=== PATIENT | male | born 1955 | race Caucasian/White ===

== ENCOUNTER 2017-05-06 10:07 | Emergency (ER) | payer MEDICARE, MEDICAID ==
--- NOTE | 2017-05-06 11:27 | ED ---
Lower Extremity - HPI Summary HPI Summary: 61 male presents to ED with complaints of a blood blister to right great toe that he sustained yesterday when hitting it on a bathtub. Patient states he does not have any pain. Called his PCP to inform them due to recent stent placement in right leg due to poor circulation to lower extremity. Surgery was 04/20. Has not had any complications since. Denies any swelling, pain or erythema. However was told to come to ED to check stent patency, without complaints other than blood blister after a stubbed toe. Blister had not increased in size, no new symptoms. FROM of toe without pain. Is taking plavix due to recent surgery. Able to bear weight and walk without difficulty. - History of Current Complaint Chief Complaint: EDExtremityLower Stated Complaint: BLOOD BLISTER ON RIGHT TOE Time Seen by Provider: 05/06/17 10:54 Hx Obtained From: Patient Mechanism Of Injury: Direct Blow Onset of Pain: Immediate, Post Accident Onset/Duration: Resolved Severity Initially: Moderate Severity Currently: None Pain Intensity: 0 Pain Scale Used: 0-10 Numeric Associated Signs And Symptoms: Positive: Bruising - blood blister to top of right great toe Aggravating Factor(s): Nothing Able to Bear Weight: Yes Feet (Multiple View): 1 - blood blister noted - Allergies/Home Medications Allergies/Adverse Reactions: Allergies Allergy/AdvReac Type Severity Reaction Status Date / Time Bee Venom Allergy Anaphylatic Verified 06/11/13 08:58 Shock TAPE Allergy Rash Uncoded 05/06/17 10:31 PMH/Surg Hx/FS Hx/Imm Hx Endocrine/Hematology History: Reports: Hx Diabetes - TYPE 2 Cardiovascular History: Reports: Hx Cardiomegaly, Hx Coronary Artery Disease - CHOLESTEROL CONTROL WITH MEDICATIONS, Hx Hypertension - CONTROL WITH MEDS, Other Cardiovascular Problems/Disorders Sensory History: Reports: Hx Contacts or Glasses - GLASSES Denies: Hx Hearing Aid Opthamlomology History: Reports: Hx Contacts or Glasses - GLASSES - Surgical History Surgery Procedure, Year, and Place: EYE MUSCLE SURGERY A CHILD, [facility]. 2010 UPPER PORTION OF UPPER JAW FOR CARROT CYST EXCISION, OFFICE Hx Anesthesia Reactions: No - Immunization History Immunizations Up to Date: Yes Infectious Disease History: Denies: Traveled Outside the [place] in Last 30 Days - Family History Known Family History: Positive: None - Social History Alcohol Use: None Substance Use Type: Reports: None Smoking Status (MU): Never Smoked Tobacco Review of Systems Constitutional: Negative Cardiovascular: Negative Respiratory: Negative Musculoskeletal: Negative Positive: Bruising - blood blister right great toe All Other Systems Reviewed And Are Negative: Yes Physical Exam Triage Information Reviewed: Yes Vital Signs On Initial Exam: Initial Vitals Temp Pulse Resp BP Pulse Ox 98.6 F 60 16 163/69 100 05/06/17 10:31 05/06/17 10:31 05/06/17 10:31 05/06/17 10:31 05/06/17 10:31 160/72 at d/c patient is medicated for HTN, encouraged follow up for recheck Vital Signs Reviewed: Yes Appearance: Positive: Well-Appearing, No Pain Distress, Well-Nourished Skin: Positive: Warm, Skin Color Reflects Adequate Perfusion, Dry, Purpura - blood blister on top of right great toe, painless, about size of nickel. no other signs of trauma, swelling, ecchymosis or deformity. FROM without pain of toe, rest of LE normal, scar to medial calf from recent surgery.. Negative: Cold, Cyanosis @, Pale, Erythema @ Head/Face: Positive: Normal Head/Face Inspection Neck: Positive: Supple, Nontender Respiratory/Lung Sounds: Positive: Clear to Auscultation, Breath Sounds Present. Negative: Rales, Rhonchi, Wheezes Cardiovascular: Positive: Normal, RRR, Pulses are Symmetrical in both Upper and Lower Extremities - 1+ right and left pedal pulse, slightly diminshed however patient states this is a chronic finding and due to vascular disease. Negative : Murmur, Rub Musculoskeletal: Positive: Normal, Strength/ROM Intact, Other - blood blister top of right great toe size of nickel as described above, no other signs of trauma, no pain on palpation, no edema, ecchymosis, crepitus or lack of ROM. normal exam otherwise. Negative: Limited @, Interruption @, Abnormal @, Pain @ , Edema Left Neurological: Positive: Normal, Sensory/Motor Intact, Alert, Oriented to Person Place, Time, CN Intact II-III, NV Bundle Intact Distally - grossly, Normal Gait - [place] Coma Scale Coma Scale Total: 15 Diagnostics - Vital Signs Vital Signs Temp Pulse Resp BP Pulse Ox 05/06/17 10:31 98.6 F 60 16 163/69 100 - Laboratory Lab Statement: Any lab studies that have been ordered have been reviewed, and results considered in the medical decision making process. - Ultrasound No standard instances Ultrasound Interpretation: No Acute Changes - 1. Patent RIGHT lower extremity common femoral to popliteal bypass arterial graft. 2. 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 Ultrasound Interpretation Completed By: Radiologist - and myself Lower Extremity Course/Dx - Course Course Of Treatment: US was obtained as asked by PCP and was normal showing patent stent. no concern for any other etiology at this time. blood blister on toe was not touched and told it will likely go away on its own, if it does not to have it re-evaluated. Did not open due to having increased risk of infection and pain. Patient refused xray due to not having any pain with motion and no signs of trauma other than blood blister. Able to bear weight and walk without difficulty. Follow up with PCP. No other concerns at this time. - Diagnoses Differential Diagnosis/HQI/PQRI: Positive: Fracture (Closed), Other - blood blister Provider Diagnoses: Blood blister Discharge - Discharge Plan Condition: Stable Disposition: HOME Patient Education Materials: Purpura (ED) Referrals: Heron Bryant MD [Primary Care Provider] - Additional Instructions: Refrain from popping blister as this will go away on its own and to refrain from infection/increased pain. Any new or worsening symptoms, pain etc, or not improving over the next couple of weeks please seek medical attention. You may keep dressed incase it does pop on its own. Follow up with PCP.
--- NOTE | 2017-05-06 12:30 | RAD ---
Indication: RIGHT great toe blood blister. Assess for arterial insufficiency. Comparison: No relevant prior exams available on the [facility] [place] for comparison. Technique: Arterial ultrasound of the RIGHT lower extremity femoral-popliteal bypass graft. Report: Peak systolic velocity at the RIGHT common femoral artery measures 147 cm/s. Triphasic waveform with spectral broadening suggests mild aortoiliac inflow disease. Peak systolic velocity at the proximal anastomosis, proximal segment, mid segment, distal segment, and distal anastomosis of the femoral popliteal bypass graft measures 120, 49, 56, 54, image 54 cm/s respectively. Peak systolic velocity at the popliteal artery measures 93 cm/s. IMPRESSION: 1. Patent RIGHT lower extremity common femoral to popliteal bypass arterial graft. 2. 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
[2017-05-06 12:50] VITALS: BP 160/72
== END 2017-05-06 12:49 | disposition home or self-care (01) ==
LOC: ED 10:07
DX: S90.421A Blister (nonthermal), right great toe, initial encounter (principal); I10 Essential (primary) hypertension; E11.9 Type 2 diabetes mellitus without complications; I25.10 Atherosclerotic heart disease of native coronary artery without angina pectoris; E78.00 Pure hypercholesterolemia, unspecified; W22.8XXA Striking against or struck by other objects, initial encounter; Y92.9 Unspecified place or not applicable
CPT/HCPCS: 99282

== ENCOUNTER 2017-05-15 12:41 | Emergency (ER) | payer MEDICARE, MEDICAID ==
[2017-05-15 14:10] LABS: Hematocrit 27 % (42-52); Hemoglobin 8.9 g/dl (14.0-18.0); Mean Corpuscular HGB Conc 33 g/dl (31-36); Mean Corpuscular Hemoglobin 31 pg (27-31); Mean Corpuscular Volume 92 fL (80-94); Mean Platelet Volume 8 um3 (7.4-10.4); Red Blood Count 2.92 10^6/ul (4.0-5.4); Red Cell Distribution Width 16 % (10.5-15)
[2017-05-15 14:26] LABS: Albumin 3.4 g/dL (3.2-5.2); BUN/Creatinine Ratio 15.8 (8-20); C Reactive Protein 1.6 mg/L (< 5.00); Calcium 8.9 mg/dL (8.6-10.3); EGFR African American 43.3 (>60); EGFR Non-African American 33.7 (>60); Potassium 4.3 mmol/L (3.5-5.0); Total Bilirubin 0.2 mg/dL (0.2-1.0); Total Protein 6.4 g/dL (6.4-8.9)
[2017-05-15] MEDS ORDERED: Famotidine IV * 20 MG in NS 0.9% 100 ML* 100 ML IVPB ONE (14:55)
[2017-05-15] MEDS ORDERED: NS 0.9% 1000 ML* 1,000 ML IV SCH (15:00)
--- NOTE | 2017-05-15 15:00 | ED ---
Lino Montalvo Gabriel, scribed for Gia Berger MD on 05/15/17 at 1458 . Abdominal Pain/Male - HPI Summary HPI Summary: The patient is 61 year old male presenting to the ED with a chief complaint of cramping abdominal pain. Patient reports abdominal cramping that radiates to the epigastric region with nausea. Patient vomited a week ago (05/08/17) but has not vomited since then. Patient is able to eat and drink normally today. Symptoms are alleviated after drinking milk. Patient denies fever, urinary symptoms, diarrhea, or history of GERD. Pt has been having solid BM -last yesterday. no blood. Pt stool was dark, after taking Maalox, is returning to normal. Pt does drink coffee daily. States discomfort keeps him awake at night. Pt states called his PCP today who sent him to the ED for further eval with recommendation of a non contrast imaging. No analgesia taken x 1 week ( Maalox) No fever, chills. No h/o abdominal surgery. No Patient additionally reports a history of DM with recent elevated blood glucose this week. Pt also reports following his surgery had difficulty with urination, temporarily had a catheter - pt now on flomax with no sense of retention. Patient states he had arterial bypass surgery in [facility] on 03/20/17. Pt's medications reviewed this visit. Pt noted to have elevated BP - h/o HTN - states took meds today - History of Current Complaint Chief Complaint: EDAbdPain Stated Complaint: ABD PAIN Time Seen by Provider: 05/15/17 14:05 Hx Obtained From: Patient, Family/District Loss Prevention Manager Onset/Duration: Gradual Onset, Lasting Weeks - 1, Still Present Timing: Constant, Intermittent Severity Initially: Moderate Severity Currently: Moderate Pain Intensity: 8 Pain Scale Used: 0-10 Numeric Location: Epigastric Radiates: No Character: Cramping Aggravating Factor(s): Nothing Alleviating Factor(s): Other: - milk, Maalox Associated Signs And Symptoms: Positive: Nausea, Vomiting. Negative: Fever, Blood in Stool, Urinary Symptoms, Diarrhea - Allergies/Home Medications Allergies/Adverse Reactions: Allergies Allergy/AdvReac Type Severity Reaction Status Date / Time Bee Venom Allergy Anaphylatic Verified 05/15/17 12:51 Shock TAPE Allergy Rash Uncoded 05/15/17 12:51 Home Medications: Home Medications Chlorthalidone TAB* [Hygroton TAB*] 12.5 mg PO DAILY 05/15/17 [History Confirmed 05/15/17] Cholecalciferol TAB* [Vitamin D TAB*] 1,000 unit PO DAILY 05/15/17 [History Confirmed 05/15/17] Clopidogrel TAB* [Plavix TAB*] 75 mg PO DAILY 05/15/17 [History Confirmed ] Gabapentin CAP(*) [Neurontin 100 mg CAP(*)] 100 mg PO DAILY 05/15/17 [History Confirmed 05/15/17] Insulin ASPART (NF) [Novolog (NF)] 10 unit SUBCUT TID AC 05/15/17 [History Confirmed 05/15/17] Insulin GLARGINE(*) [Lantus(*)] 10 units SUBCUT BEDTIME 05/15/17 [History Confirmed 05/15/17] Nitroglycerin TAB 0.4 MG* 0.4 mg SL Q5M PRN 05/15/17 [History Confirmed 05/15/17 ] Pentoxifylline CR TAB* [TRENtal CR TAB*] 400 mg PO TID 05/15/17 [History Confirmed 05/15/17] Rosuvastatin (NF) [Crestor] 40 mg PO DAILY 05/15/17 [History Confirmed 05/15/17] Sitagliptin (NF) [Januvia (NF)] 50 mg PO DAILY 05/15/17 [History Confirmed 05/15] Tamsulosin CAP* [Flomax CAP*] 0.4 mg PO DAILY 05/15/17 [History Confirmed ] diPHENhydraMINE PO* [Benadryl PO 25 MG TAB*] 25 mg PO Q6H PRN 05/15/17 [History Confirmed 05/15/17] PMH/Surg Hx/FS Hx/Imm Hx Previously Healthy: Yes Endocrine/Hematology History: Reports: Hx Anticoagulant Therapy - plavix, Hx Diabetes - TYPE 2 Cardiovascular History: Reports: Hx Cardiomegaly, Hx Coronary Artery Disease - CHOLESTEROL CONTROL WITH MEDICATIONS, Hx Hypertension - CONTROL WITH MEDS, Other Cardiovascular Problems/Disorders Sensory History: Reports: Hx Contacts or Glasses - GLASSES Denies: Hx Hearing Aid Opthamlomology History: Reports: Hx Contacts or Glasses - GLASSES - Surgical History Surgery Procedure, Year, and Place: EYE MUSCLE SURGERY A CHILD, [facility]. 2010 UPPER PORTION OF UPPER JAW FOR CARROT CYST EXCISION, OFFICE Hx Anesthesia Reactions: No Infectious Disease History: No Infectious Disease History: Denies: Traveled Outside the [place] in Last 30 Days - Family History Known Family History: Positive: Cardiac Disease - CAD, Hypertension - paternal, Diabetes Negative: Renal Disease, Respiratory Disease, Seizure Disorder, Blood Disorder - Social History Occupation: Retired Lives: With Family Alcohol Use: None Substance Use Type: Reports: None Smoking Status (MU): Never Smoked Tobacco Review of Systems Negative: Fever Positive: Abdominal Pain, Vomiting, Nausea All Other Systems Reviewed And Are Negative: Yes Physical Exam Triage Information Reviewed: Yes Vital Signs On Initial Exam: Initial Vitals Temp Pulse Resp BP Pulse Ox 97.9 F 66 20 187/62 100 05/15/17 12:46 05/15/17 12:46 05/15/17 12:46 05/15/17 12:46 05/15/17 12:46 Vital Signs Reviewed: Yes Appearance: Positive: Well-Appearing, No Pain Distress, Well-Nourished Skin: Positive: Warm, Skin Color Reflects Adequate Perfusion, Dry Head/Face: Positive: Normal Head/Face Inspection Eyes: Negative: Conjunctiva Inflammed ENT: Positive: Hearing grossly normal, Other - mmmoist Neck: Positive: Supple, Nontender, No Lymphadenopathy Respiratory/Lung Sounds: Positive: Clear to Auscultation, Breath Sounds Present , Decreased Breath Sounds Cardiovascular: Positive: Normal, RRR, Pulses are Symmetrical in both Upper and Lower Extremities. Negative: Murmur Abdomen Description: Positive: No Organomegaly, Soft, Other: - mild epigastric discomfort with direct palp No guarding no distension no rebound + BS throughout Bowel Sounds: Positive: Present Musculoskeletal: Positive: Normal Neurological: Positive: Normal, Sensory/Motor Intact, Alert, Oriented to Person Place, Time Psychiatric: Positive: Normal AVPU Assessment: Alert - [place] Coma Scale Best Eye Response: 4 - Spontaneous Best Motor Response: 5 - Purposeful Movement Best Verbal Response: 5 - Oriented Diagnostics - Vital Signs Vital Signs Temp Pulse Resp BP Pulse Ox 05/15/17 13:31 68 100 05/15/17 13:30 181/63 05/15/17 13:29 177/46 05/15/17 12:46 97.9 F 66 20 187/62 100 - Laboratory Lab Results: Lab Results 05/15/17 05/15/17 05/15/17 Range/Units 13:59 13:59 13:59 WBC 10.0 (3.5-10.8) 10^3/ul RBC 2.92 L (4.0-5.4) 10^6/ul Hgb 8.9 L (14.0-18.0) g/dl Hct 27 L (42-52) % MCV 92 (80-94) fL MCH 31 (27-31) pg MCHC 33 (31-36) g/dl RDW 16 H (10.5-15) % Plt Count 224 (150-450) 10^3/ul MPV 8 (7.4-10.4) um3 Neut % (Auto) 65.9 (38-83) % Lymph % (Auto) 20.5 L (25-47) % [place] % (Auto) 7.6 (1-9) % Eos % (Auto) 5.2 (0-6) % Baso % (Auto) 0.8 (0-2) % Absolute Neuts (auto) 6.6 (1.5-7.7) 10^3/ul Absolute Lymphs (auto) 2.1 (1.0-4.8) 10^3/ul Absolute Monos (auto) 0.8 (0-0.8) 10^3/ul Absolute Eos (auto) 0.5 (0-0.6) 10^3/ul Absolute Basos (auto) 0.1 (0-0.2) 10^3/ul Absolute Nucleated RBC 0 10^3/ul Nucleated RBC % 0 Sodium 136 (133-145) mmol/L Potassium 4.3 (3.5-5.0) mmol/L Chloride 109 (101-111) mmol/L Carbon Dioxide 23 (22-32) mmol/L Anion Gap 4 (2-11) mmol/L BUN 32 H (6-24) mg/dL Creatinine 2.03 H (0.67-1.17) mg/dL Est GFR ( Amer) 43.3 (>60) Est GFR (Non-Af Amer) 33.7 (>60) BUN/Creatinine Ratio 15.8 (8-20) Glucose 86 (70-100) mg/dL Lactic Acid 0.7 (0.5-2.0) mmol/L Calcium 8.9 (8.6-10.3) mg/dL Magnesium 2.0 (1.9-2.7) mg/dL Total Bilirubin 0.20 (0.2-1.0) mg/dL AST 8 L (13-39) U/L ALT 7 (7-52) U/L Alkaline Phosphatase 45 (34-104) U/L C-Reactive Protein 1.60 (< 5.00) mg/L Total Protein 6.4 (6.4-8.9) g/dL Albumin 3.4 (3.2-5.2) g/dL Globulin 3.0 (2-4) g/dL Albumin/Globulin Ratio 1.1 (1-3) Lipase 35 (11.0-82.0) U/L Result Diagrams: 05/15/17 13:59 05/15/17 13:59 Lab Statement: Any lab studies that have been ordered have been reviewed, and results considered in the medical decision making process. - CT CT ABD/Pelvis CT Interpretation Completed By: Radiologist - 1. Suspect gallbladder gravel/ sludge. 2. Advanced atherosclerotic changes as described. ED physician has reviewed this radiology report and agrees. Re-Evaluation - Re-Evaluation First Eval Re-Evaluation Time: 16:18 Change: Improved Comment: Patient is pain free and is currently drinking contrast without nausea. Second Eval Re-Evaluation Time: 17:36 Comment: pt continues to feel well. reviewed labs and CT imaging with pt. d/w pt GERD triggers. Pt isamar f/u with pcp. Pt comfortable and in agreement with plan Abdominal Pain Fem Course/Dx - Course Assessment/Plan: Pt presents with ongoing epigastric discomfort and belching x 1week. Pt had nausea and vomiting on day #1, none since. Pt has been taking po. sx relieve by milk. Pt with epigatric discomfort on exam. suspect sx related to GERD. Will check labs. trop x 1 given cardiac hx and DM - pt hx not concerning for cardiac cause based on exam and hx. urine. will check CT - oral contrast only. gentle IVF. Pepcid. reassessment. Pt and family comfortable and in agreement with plan - Diagnoses Provider Diagnoses: GERD (gastroesophageal reflux disease), Gallbladder sludge Discharge - Discharge Plan Condition: Improved Disposition: HOME Prescriptions: Famotidine TAB* [Pepcid 20 MG TAB*] 20 mg PO DAILY #30 tab Patient Education Materials: Gallstones (ED), Gastroesophageal Reflux Disease ( ED) Referrals: Heron Bryant MD [Primary Care Provider] - Additional Instructions: - STay well hydrated. Avoid excess caffeine and alcohol - Avoid foods that increase your symptoms. This may include acidic food such tomatos, oranges, carbonated beverages, fruit, spicy foods - Eat small, bland foods every 2-3 hours to help with discomfort - Take pepcid daily as prescribed - Contact your doctor to schedule a follow-up appointment this week. Contact your doctor or return with questions or concerns The documentation as recorded by the Lino bush Gabriel accurately reflects the service I personally performed and the decisions made by me, Gia Berger MD.
[2017-05-15 15:18] LABS: Troponin I 0.03 ng/mL (<0.04)
[2017-05-15 15:37] LABS: Urine Bacteria Absent (Absent); Urine Bilirubin Negative (Negative); Urine Glucose 1+(50 mg/dL) (Negative); Urine Nitrite Negative (Negative)
[2017-05-15 17:03] VITALS: BP 171/55
--- NOTE | 2017-05-15 17:10 | RAD ---
INDICATION: Epigastric pain COMPARISON: None TECHNIQUE: Axial source images were acquired from the level hemidiaphragms to the symphysis pubis following administration of oral contrast only as specifically requested. This limits evaluation of the solid viscera. Lung bases: The lung bases are clear. There is prior sternotomy Liver: The liver is normal in size. Noncontrast imaging shows no evidence of a hepatic mass or ductal dilatation. Gallbladder: There are no calcified gallstones. There is suspected gravel or sludge within the gallbladder. There is no evidence of wall thickening or pericholecystic fluid.. Spleen: The spleen is normal in size. The noncontrast CT appearance is normal. Pancreas: Noncontrast imaging shows no pancreatic mass or ductal dilitation. Adrenal glands: No masses are identified. Kidneys/Bladder: There is no evidence of nephrolithiasis or CT evidence of hydronephrosis. Noncontrast imaging shows no evidence of a renal mass. The bladder is unremarkable.. Adenopathy: There is no evidence of intraperitoneal or retroperitoneal adenopathy. Evaluation is limited without oral contrast. Fluid collections: There are no free or localized fluid collections. Vessels: There are advanced atherosclerotic changes of the aorta and iliac vessels. The bilateral iliac stenting. There is a right femoral graft. There is no focal aneurysm. The IVC appears normal Pelvic organs: The prostate and seminal vesicles appear normal GI tract: Evaluation of the bowel is limited without oral contrast. The stomach, small bowel, and lower GI tract appear grossly normal. There are no obstructive findings. The appendix is visualized and appears normal. Soft tissues: No soft tissue abnormalities of the extraperitoneal abdomen or pelvis are identified. Osseous structures: There are no acute osseous findings. IMPRESSION: 1. Suspect gallbladder gravel/sludge. 2. Advanced atherosclerotic changes as described.
== END 2017-05-15 18:08 | disposition home or self-care (01) ==
LOC: ED 12:41
DX: K21.9 Gastro-esophageal reflux disease without esophagitis (principal); K82.8 Other specified diseases of gallbladder; E11.9 Type 2 diabetes mellitus without complications; Z79.4 Long term (current) use of insulin; Z79.02 Long term (current) use of antithrombotics/antiplatelets; I25.10 Atherosclerotic heart disease of native coronary artery without angina pectoris; I10 Essential (primary) hypertension
CPT/HCPCS: 36415; 74176; 80053; 81003; 81015; 83605; 83690; 83735; 84484; 85025; 86140; 96360; 96374; 99283

== ENCOUNTER 2018-11-17 23:45 | Emergency (ER) | payer MEDICARE, MEDICAID ==
[2018-11-18] MEDS ORDERED: Acetaminophen TAB* 325 MG PO ONE (00:29)
[2018-11-18 00:48] LABS: ABS Basophils 0.1 10^3/ul (0-0.2); ABS Eosinophils 0.2 10^3/ul (0-0.6); ABS Monocytes 1.1 10^3/ul (0-0.8); ABS Neutrophils 9.8 10^3/ul (1.5-7.7); Eosinophil % 1.4 %; Hematocrit 40 % (42-52); Hemoglobin 13.5 g/dL (14.0-18.0); Lymphocyte % 7.9 %; Mean Corpuscular HGB Conc 34 g/dL (31-36); Mean Corpuscular Hemoglobin 30 pg (27-31); Mean Corpuscular Volume 89 fL (80-94); Mean Platelet Volume 7.9 fL (7.4-10.4); Platelet Count 147 10^3/uL (150-450); Red Blood Count 4.51 10^6 /uL (4.18-5.48); Red Cell Distribution Width 15 % (10-15); White Blood Count 12.1 10^3/uL (3.5-10.8)
[2018-11-18 01:04] LABS: Albumin 3.2 g/dL (3.2-5.2); Albumin/Globulin Ratio 1.2 (1-3); C Reactive Protein 25.93 mg/L (<8.01); Calcium 8.6 mg/dL (8.6-10.3); EGFR African American 23.3 (>60); EGFR Non-African American 19.2 (>60); Globulin 2.7 g/dL (2-4); Total Bilirubin 0.5 mg/dL (0.2-1.0); Total Protein 5.9 g/dL (6.4-8.9)
--- NOTE | 2018-11-18 01:15 | ED ---
HPI Febrile Illness - HPI Summary HPI Summary: Patient complains of fever and nausea starting today. Fever up to 101. Patient states recent peritoneal dialysis catheter placed 11/15/18. Denies pain or drainage at site of catheter. Also denies cough, sore throat, CP, SOB, V/D, abdominal pain, change in urine, change in BM. Medical history is DM, HTN, CAD. - History of Current Complaint Chief Complaint: EDFever Time Seen by Provider: 11/18/18 00:27 Hx Obtained From: Patient Onset/Duration: Started Hours Ago Timing: Constant Initial Severity: Mild Current Severity: Mild Pain Intensity: 2 Pain Scale Used: 0-10 Numeric Aggravating Factors: Nothing Alleviating Factors: Nothing Associated Signs and Symptoms: Nausea - Allergy/Home Medications Allergies/Adverse Reactions: Allergies Allergy/AdvReac Type Severity Reaction Status Date / Time bee venom protein (honey bee) Allergy Anaphylatic Verified 11/18/18 01:00 Shock TAPE Allergy Rash Uncoded 11/18/18 01:00 Home Medications: Home Medications Aspirin EC TAB* [Ecotrin EC Low Dose 81 MG*] 81 mg PO DAILY 11/18/18 [History Confirmed 11/18/18] HYDROcodone/ACETAMIN 5-325 MG* [[place] 5-325 TAB*] 1 tab PO Q6H PRN 11/18/18 [ History Confirmed 11/18/18] Melatonin 1 mg PO BEDTIME 11/18/18 [History Confirmed 11/18/18] Pentoxifylline CR TAB* [[place]rental CR TAB*] 1 tab PO TID 11/18/18 [History Confirmed 11/18/18] amLODIPine TAB* [Norvasc 5 mg TAB*] 2.5 mg PO DAILY 11/18/18 [History Confirmed 11/18/18] hydrALAZINE TAB* [Apresoline TAB*] 100 mg PO BID 11/18/18 [History Confirmed ] PMH/Surg Hx/FS Hx/Imm Hx Endocrine/Hematology History: Reports: Hx Anticoagulant Therapy - plavix, Hx Diabetes - TYPE 2 Cardiovascular History: Reports: Hx Cardiomegaly, Hx Coronary Artery Disease - CHOLESTEROL CONTROL WITH MEDICATIONS, Hx Hypertension - CONTROL WITH MEDS, Other Cardiovascular Problems/Disorders History: Denies: Hx Dialysis Sensory History: Reports: Hx Contacts or Glasses - GLASSES Denies: Hx Hearing Aid Opthamlomology History: Reports: Hx Contacts or Glasses - GLASSES EENT History: Denies: Hx Deafness Neurological History: Denies: Hx Developmental Delay Psychiatric History: Denies: Hx Autism - Surgical History Surgery Procedure, Year, and Place: EYE MUSCLE SURGERY A CHILD, [facility]. 2010 UPPER PORTION OF UPPER JAW FOR CARROT CYST EXCISION, OFFICE Hx Anesthesia Reactions: No Infectious Disease History: No Infectious Disease History: Denies: Traveled Outside the [place] in Last 30 Days - Family History Known Family History: Positive: None, Cardiac Disease - CAD, Hypertension - paternal, Diabetes Negative: Renal Disease, Respiratory Disease, Seizure Disorder, Blood Disorder - Social History Alcohol Use: None Substance Use Type: Reports: None Smoking Status (MU): Never Smoked Tobacco Review of Systems Positive: Fever Eyes: Negative ENT: Negative Cardiovascular: Negative Respiratory: Negative Positive: Nausea Genitourinary: Negative Musculoskeletal: Negative Skin: Negative Neurological: Negative Psychological: Normal All Other Systems Reviewed And Are Negative: Yes Physical Exam - Summary Physical Exam Summary: Incision site of dialysis catheter placement clean and dry and intact. No erythema, purulent drainage. Abdomen soft nontender. ENT exam unremarkable. Lung sounds clear to auscultation bilaterally. Triage Information Reviewed: Yes Vital Signs On Initial Exam: Initial Vitals Temp Pulse Resp BP Pulse Ox 100.3 F 80 16 205/72 93 11/17/18 23:50 11/17/18 23:50 11/17/18 23:50 11/17/18 23:50 11/17/18 23:50 Vital Signs Reviewed: Yes Appearance: Positive: Well-Appearing Skin: Positive: Warm Head/Face: Positive: Normal Head/Face Inspection Eyes: Positive: Normal ENT: Positive: Normal ENT inspection Neck: Positive: Supple Respiratory/Lung Sounds: Positive: Clear to Auscultation Cardiovascular: Positive: Normal Abdomen Description: Positive: Nontender Musculoskeletal: Positive: Normal Neurological: Positive: Normal Psychiatric: Positive: Normal AVPU Assessment: Alert - [place] Coma Scale Best Eye Response: 4 - Spontaneous Best Motor Response: 6 - Obeys Commands Best Verbal Response: 5 - Oriented Coma Scale Total: 15 Diagnostics - Vital Signs Vital Signs Temp Pulse Resp BP Pulse Ox 11/17/18 23:50 100.3 F 80 16 205/72 93 - Laboratory Lab Results: Lab Results 11/18/18 11/18/18 11/18/18 Range/Units 00:41 00:41 00:41 WBC 12.1 H (3.5-10.8) 10^3/uL RBC 4.51 (4.18-5.48) 10^6 /uL Hgb 13.5 L (14.0-18.0) g/dL Hct 40 L (42-52) % MCV 89 (80-94) fL MCH 30 (27-31) pg MCHC 34 (31-36) g/dL RDW 15 (10-15) % Plt Count 147 L (150-450) 10^3/uL MPV 7.9 (7.4-10.4) fL Neut % (Auto) 81.2 % Lymph % (Auto) 7.9 % Ogle % (Auto) 8.8 % Eos % (Auto) 1.4 % Baso % (Auto) 0.7 % Absolute Neuts (auto) 9.8 H (1.5-7.7) 10^3/ul Absolute Lymphs (auto) 1.0 (1.0-4.8) 10^3/ul Absolute Monos (auto) 1.1 H (0-0.8) 10^3/ul Absolute Eos (auto) 0.2 (0-0.6) 10^3/ul Absolute Basos (auto) 0.1 (0-0.2) 10^3/ul Absolute Nucleated RBC 0.0 10^3/ul Nucleated RBC % 0.0 Sodium 135 (135-145) mmol/L Potassium 4.0 (3.5-5.0) mmol/L Chloride 107 (101-111) mmol/L Carbon Dioxide 18 L (22-32) mmol/L Anion Gap 10 (2-11) mmol/L BUN 59 H (6-24) mg/dL Creatinine 3.28 H (0.67-1.17) mg/dL Est GFR ( Amer) 23.3 (>60) Est GFR (Non-Af Amer) 19.2 (>60) BUN/Creatinine Ratio 18.0 (8-20) Glucose 179 H (70-100) mg/dL Lactic Acid 0.6 (0.5-2.0) mmol/L Calcium 8.6 (8.6-10.3) mg/dL Total Bilirubin 0.50 (0.2-1.0) mg/dL AST 10 L (13-39) U/L ALT 6 L (7-52) U/L Alkaline Phosphatase 40 (34-104) U/L C-Reactive Protein 25.93 H (<8.01) mg/L Total Protein 5.9 L (6.4-8.9) g/dL Albumin 3.2 (3.2-5.2) g/dL Globulin 2.7 (2-4) g/dL Albumin/Globulin Ratio 1.2 (1-3) Result Diagrams: 11/18/18 00:41 11/18/18 00:41 Lab Statement: Any lab studies that have been ordered have been reviewed, and results considered in the medical decision making process. Course/Dx - Course Course Of Treatment: Patient complains of fever and nausea starting today. Fever up to 101. Patient states recent peritoneal dialysis catheter placed 11/15. Denies pain or drainage at site of catheter. Also denies cough, sore throat, CP, SOB, V/D, abdominal pain, change in urine, change in BM. Medical history is DM, HTN, CAD. Physical exam:Incision site of dialysis catheter placement clean and dry and intact. No erythema, purulent drainage. Abdomen soft nontender. ENT exam unremarkable. Lung sounds clear to auscultation bilaterally. Temp 100.3. BP 205/72. Vital signs otherwise within normal limits. WBC 12.1. CRP 25. CO2 18. Creatinine 3.28. BUN 59. Patient signed out to Dr. horner pending results of CT abdomen and pelvis. - Diagnoses Provider Diagnoses: Fever Discharge - Sign-Out/Discharge Documenting (check all that apply): Sign-Out Patient Signing out patient TO: Watson Yoo Patient Received Moderate/Deep Sedation with Procedure: No - Discharge Plan Condition: Good Disposition: HOME Patient Education Materials: Fever in Adults (ED) Additional Instructions: If you start to feel worse or develop new symptoms, we should see you back here. - Billing Disposition and Condition Condition: GOOD Disposition: Home
--- NOTE | 2018-11-18 04:14 | ED ---
Progress - Progress Note Progress Note: This patient is signed out from Michael Garcia at [address] A/P. - Results/Orders Results/Orders: CT A/P reveals, as per radiologist: 1. Recent placement of a peritoneal catheter. No apparent complications. No significant free fluid or free air within the peritoneal cavity. No walled off 2. The transverse colon is collapsed with some thickening of the wall. This could represent an early colitis. ED Physician has reviewed this report. Course/Dx - Course Course Of Treatment: This patietn is signed out from Michael Garcia awaiting the results of the CT A/P for disposition. CT reveals, "1. Recent placement of a peritoneal catheter. No apparent complications. No. significant free fluid or free air within the peritoneal cavity. No walled off. 2. The transverse colon is collapsed with some thickening of the wall. This. could represent an early colitis. " This patient will be discharged home and is instructed to return if symptoms return or new ones develop. - Diagnoses Provider Diagnoses: Fever Discharge - Sign-Out/Discharge Documenting (check all that apply): Patient Departure - discharge Patient Received Moderate/Deep Sedation with Procedure: No - Discharge Plan Condition: Stable Disposition: HOME Patient Education Materials: Fever in Adults (ED) Referrals: Heron Bryant MD [Primary Care Provider] - 2 Days Additional Instructions: If you start to feel worse or develop new symptoms, we should see you back here. - Attestation Statements Document Initiated by Scribe: Yes Documenting Scribe: Shante Medina Provider For Whom Scribe is Documenting (Include Credential): Watson Yoo MD Scribe Attestation: I, Shante Medina, scribed for Watson Yoo MD on 11/18/18 at [id number]. Status of Scribe Document: Ready
[2018-11-18 04:36] VITALS: BP 203/86
== END 2018-11-18 04:37 | disposition home or self-care (01) ==
LOC: ED 23:45
DX: R50.9 Fever, unspecified (principal); R11.0 Nausea; E11.9 Type 2 diabetes mellitus without complications; E78.00 Pure hypercholesterolemia, unspecified; I25.10 Atherosclerotic heart disease of native coronary artery without angina pectoris; I10 Essential (primary) hypertension; Z79.01 Long term (current) use of anticoagulants; Z79.82 Long term (current) use of aspirin; Z98.890 Other specified postprocedural states; Z91.030 Bee allergy status; Z91.048 Other nonmedicinal substance allergy status
CPT/HCPCS: 36415; 74176; 80053; 83605; 85025; 86140; 87040; 99283; A9270-GY